=== PATIENT | female | born 1985 | race Caucasian/White ===

== ENCOUNTER 2016-07-23 06:12 | Inpatient (IN) | payer OTHER ==
--- NOTE | 2016-07-20 00:19 | HPE ---
DATE OF SCHEDULED ADMISSION: 07/27/2016 This lady is having an elective repeat section on 07/27/2016 at 0730 hours. She is a 30-year-old, 2, para 1, last menstrual period (LMP) 11/05/2015 estimated date of confinement (EDC) 08/02/2016. She will be 39 weeks of gestation for elective repeat section. She had a primary section in January 2015 for nonreassuring heart, delivered a live male weighing 7 pounds 4 ounces. Her past medical history is that she has had a history of gestational hypertension as well as gestational hypertension in this as well. She is also Rh negative. LABS: Show she is A negative. Received RhoGAM at 28 weeks. HIV negative. Hepatitis negative. RPR negative. Rubella immune. Varicella immune. Pap normal. Urine is negative. Gonorrhea and chlamydia are negative. 1-hour glucose was 134. GBS status at the present time is unknown. She is booked for an elective repeat section. The rest of the examination indicates that she is normocephalic, atraumatic. Neck full range of motions. Pupils equal and reactive to light. Distal pulses are symmetric. No evidence of deep venous thrombosis (DVT), pulmonary embolism (PE), or superficial phlebitis. Lungs are clear bilaterally to bases. No wheezes or rhonchi. Uterus is nontender. Incisional site is nontender. Four quadrant bowel sounds are noted, and she does have polyhydramnios with an amniotic fluid index (DAYANA) of 28 and symphysis fundus height of 41. She has no rash or lesions. No pruritus. No arthralgia or myalgia. No complaints of cough, wheezes, shortness of breath, or dyspnea on exertion. No chest pain. She is not bleeding. She is neurologically complete. No incontinence, urgency. No nausea, vomiting, diarrhea, or constipation. She has no diabetic issues. 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 No past medical history issues. She has had a section as past surgical intervention. She does not smoke or drink, abuse drugs, and there is no domestic violence. We discussed the risks and benefits of section, including hemorrhage, infection, perforation, , reoperation, remote possibility of blood transfusion, remote possibility of hysterectomy, remote possibility of laceration or intensive care admission. After discussing the risks and benefits of the surgery, patient expressed understanding of the procedure, signed and witnessed the consent form. As far as control postoperatively, she is going to use the mini-pill until her has his vasectomy, and there has been a confirmation semen analysis that is successful. IN SUMMARY: We have a term gestation for repeat section with polyhydramnios.
[~2016-07-23] VITALS: Ht 160 cm; Wt 82.0 kg
[2016-07-23] VITALS (8 sets, daily range): BP systolic 109–130; BP diastolic 63–82
[~2016-07-23 06:12] MED LIST: ANTACHW5 PO; COLA100C PO; DOCU10CA PO; IBUP80TA PO; PERCOCET PO; PRENTAB55 PO; PRENTAB8 PO
[2016-07-23] MEDS ORDERED: BUPIVACAINE HCL 0.25% 10 ML VIAL XX ONE (06:30)
[2016-07-23] MEDS ORDERED: LR 800 ML IV ONE (06:30)
[2016-07-23] MEDS ORDERED: BICITRA 30ML SOLN UDC PO ONE (06:30)
[2016-07-23] MEDS ORDERED: ACETAMINOPHEN 650 MG SUPP PR ONE (06:45)
[2016-07-23] MEDS ORDERED: LR 1,000 ML IV SCH ×2 (07:00→10:00)
[2016-07-23 07:11] LABS: MEAN CORPUSCULAR HEMOGLOBIN 29.6 pg (27.0-33.0); MEAN CORPUSCULAR HGB CONC 35.3 g/dl (32.0-36.5); MEAN CORPUSCULAR VOLUME 83.9 fl (80.0-96.0); RED CELL DISTRIBUTION WIDTH 13.6 % (11.5-14.5); WHITE BLOOD COUNT 7.8 K/mm3 (4.0-10.0)
[2016-07-23] MEDS ORDERED: METOCLOPRAMIDE INJ 10MG/2ML VIAL (J2765) IV PRN ×2 (08:11→10:00)
[2016-07-23] MEDS ORDERED: ONDANSETRON 4MG/2ML VIAL (J2405) IV PRN ×2 (08:11→10:00)
[2016-07-23] MEDS ORDERED: NALBUPHINE HCL 10 MG/ML AMP (J2300) IV PRN (08:11)
[2016-07-23] MEDS ORDERED: NALOXONE INJ 0.4 MG/1 ML VIAL (J2310) IV PRN ×2 (08:11)
[2016-07-23] MEDS ORDERED: ePHEDrine SULFATE 25 MG/5 ML(5MG/ML) SYRINGE As Ordered ONE (08:19)
[2016-07-23] MEDS ORDERED: MORPHINE PRES-FREE INJ 10 MG/10 ML VIAL (J2274) As Ordered ONE (08:19)
[2016-07-23] MEDS ORDERED: OXYTOCIN INJ 10 UNITS/ML VIAL (J2590) As Ordered ONE ×2 (08:19→08:50)
[2016-07-23] MEDS ORDERED: ONDANSETRON 4MG/2ML VIAL (J2405) As Ordered ONE (08:24)
[2016-07-23] MEDS ORDERED: KETOROLAC 60 MG/2 ML VIAL (J1885) As Ordered ONE (08:24)
[2016-07-23] MEDS ORDERED: DESFLURANE 240 ML INHALANT As Ordered ONE (08:43)
[2016-07-23 09:07] LABS: CORD GAS ABE V -11.2; CORD GAS HCO3 V 17.9 MEQ/L; CORD GAS O2 SAT V 56.1 %; CORD GAS PCO2 V 52.8 mmHg; CORD GAS PH V 7.147 UNITS; CORD GAS PO2 V 29.7 mmHg; CORD GAS SBC V 14.9 MEQ/L; CORD GAS TCO2 V 19.5 MEQ/L
[2016-07-23 09:08] LABS: CORD GAS ABE A -14.8; CORD GAS HCO3 A 17.7 MEQ/L; CORD GAS O2 SAT A 33.6 %; CORD GAS PCO2 A 75.1 mmHg; CORD GAS PH A 6.991 UNITS; CORD GAS PO2 A 24.4 mmHg; CORD GAS SBC A 12.2 MEQ/L
[2016-07-23] MEDS ORDERED: OXYTOCIN DRIP 30 UNITS in APPROPRIATE DILUENT 1 EA IV SCH (09:31)
[2016-07-23] MEDS ORDERED: MOM 30ML SUSPENSION UDC PO PRN (09:45)
[2016-07-23] MEDS ORDERED: PERCOCET 5MG/325MG TAB PO PRN ×2 (09:45→10:00)
[2016-07-23] MEDS ORDERED: DOCUSATE SODIUM 100 MG CAP PO PRN (09:45)
[2016-07-23] MEDS ORDERED: OXYTOCIN INJ 10 UNITS/ML VIAL (J2590) IV ONE (09:45)
[2016-07-23] MEDS ORDERED: METHYLERGONOVINE MALEATE 0.2 MG TAB PO PRN (09:45)
[2016-07-23] MEDS ORDERED: MEASLES,MUMPS,RUBELLA VACCINE INJ (MMR-II) (90707) SC SCH (09:45)
[2016-07-23] MEDS ORDERED: RHOGAM 300 MCG (1500 IU) INJ (J2790) IM SCH (09:45)
[2016-07-23] MEDS ORDERED: fentaNYL 100 MCG/2 ML INJECTION (J3010) IV PRN (10:00)
[2016-07-23] MEDS ORDERED: KETOROLAC 30 MG/ML VIAL (J1885) IV PRN (10:00)
[2016-07-23] MEDS: PRENATAL VITAMIN TAB PO SCH (10:58)
[2016-07-23] MEDS: PERCOCET 5MG/325MG TAB PO PRN ×2 (15:49→21:51)
[2016-07-24 01:50] VITALS: BP 118/59
[2016-07-24] MEDS: PERCOCET 5MG/325MG TAB PO PRN ×2 (03:04→08:16)
[2016-07-24 05:31] VITALS: BP 136/70
[2016-07-24 06:53] LABS: MEAN CORPUSCULAR HEMOGLOBIN 28.9 pg (27.0-33.0); MEAN CORPUSCULAR HGB CONC 33.8 g/dl (32.0-36.5); MEAN CORPUSCULAR VOLUME 85.7 fl (80.0-96.0); RED CELL DISTRIBUTION WIDTH 13.6 % (11.5-14.5); WHITE BLOOD COUNT 6.6 K/mm3 (4.0-10.0)
[2016-07-24] MEDS: PRENATAL VITAMIN TAB PO SCH (07:43)
[2016-07-24] MEDS ORDERED: OXYC1TAB23 PO (08:08)
--- NOTE | 2016-07-25 18:32 | DSES ---
DATE OF ADMISSION: DATE OF DISCHARGE: 07/24/2016 SUMMARY: This lady is a 30-year-old 2 now para 2, admitted for elective repeat section, history of gestational hypertension. She delivered a live male weighing 9 pounds 0 ounces, 4094 grams, scores of 7 and 9 at one and five minutes respectively. The arterial pH was 6.99, base excess -14.8. Venous pH was 7.14, base excess was -11.2. Upon delivery, it was noted there was failure to maintain the O2 saturation despite a mask and oxygen. The carbon dioxide (CO2) on the baby was 60% and a diagnosis of transposition of the great vessels was made at that time, and the baby was transferred out to [place] and evaluation and stabilization until it is going to have cardiac surgery in [place] on Tuesday. Admitting hemoglobin was 12.2, hematocrit 35.8 and platelets of 185. The patient's blood pressure today is 136/70, respirations are 16, pulse of 69, and temperature 97.0. The rest of the examination is unremarkable. She is normocephalic, atraumatic. Neck full range of motion. Pupils equal and reactive to light. Distal pulses symmetric. No evidence of deep venous thrombosis (DVT), pulmonary embolism (PE) or superficial phlebitis. The chest is clear bilaterally to bases. No wheezes or rhonchi. No costovertebral angle tenderness. Abdomen is soft. Bowel sounds are present. Uterus is two below. Incision is clean and dry. There is no rashes, lesions or pruritus. No arthralgia or myalgia. No complaints of cough, wheeze, shortness of breath or dyspnea on exertion. No arthralgia or myalgia. She has no chest pain. She is not bleeding. She is neurologically complete. No history of incontinence, urgency or frequency. No nausea, vomiting, diarrhea or constipation. Her past history is strictly the fact that she had a section. Family history is noncontributory. She does not smoke or drink or abuse drugs. She is to a soldier. There is no domestic violence. We discussed the risks and benefits of leaving early for Patricia to be with her baby prior to discharge to [place] for surgery. She is to maintain well hydration, mobilizing her legs every few hours, getting out of the car and walking around. A pillow between her abdomen and the seatbelt. Maintain adequate analgesics. Have someone else drive the vehicle monitor. Monitor her lochia. If there is increased lochia or foul discharge, to immediately contact the nearest emergency department. She is to come for two-week incision check and a six-week postoperative check. In summary, we have a gestational hypertension for repeat section with a live- male .
--- NOTE | 2016-08-02 08:19 | RO ---
DATE OF PROCEDURE: 07/23/2016 PREOPERATIVE DIAGNOSIS: Repeat section, declined trial of labor after section (TOLAC). POSTOPERATIVE DIAGNOSES: Repeat section, polyhydramnios, gestational hypertension, repeat section. OPERATION PROPOSED: Repeat section. OPERATION PERFORMED: Repeat section. SURGEON: Dr. Merritt Blanton INDUSTRIAL ROOFER HELPER: ANESTHESIA: Spinal plus local anesthetic for intraperitoneal procedures. ESTIMATED BLOOD LOSS: 400 mL. Under adequate anesthesia and adequate time-out, prepped and draped in the supine position, Bosch catheter in the bladder draining clear urine. Sequentials on board. Antibiotics given preoperatively. A Pfannenstiel incision made through the previous one, passing through abdominal layers, securing hemostasis, opening the peritoneal cavity, bladder reflected well anteriorly. Low transverse incision was made into the uterus. Artificial rupture of membranes (AROM) done was performed and approximately 1200 mL of amniotic fluid removed. We delivered a live male weighing 9 pounds 15 ounces, 4094 grams. of 7 and 8 at one and five minutes respectively. Placenta was manually removed. Three-vessel cord, membranes and tissues intact. Arterial and venous pH were performed. After the removal of placenta sweeping the intrauterine cavity, no evidence of remnants were noted. The uterus contracted well under Pitocin. The lower segment oversewn in usual fashion in two layers and reperitonealization was performed. With instrument and pad count correct, ovaries appeared to be normal. The abdomen was then closed with running sutures for the peritoneum, same for the fascia. We vigorously irrigated the subcutaneous tissue. Subcuticular stitches were placed and Marcaine 0.25% 10 mL at the incision site with Telfa and spray and the patient was sent to recovery in good condition.
== END 2016-07-24 08:46 | disposition home or self-care (01) | DRG 765 ==
LOC: M LDPACU 06:12 → M OBS 10:42
PROVIDERS: ADMIT Obstetrics & Gynecology; ATTEND Obstetrics & Gynecology
PROC: 10D00Z1 Extraction of Products of Conception, Low, Open Approach (ICD-10-PCS; principal; 2016-07-23 07:30)
DX: O34.211 Maternal care for low transverse scar from previous cesarean delivery (principal); O40.3XX0 Polyhydramnios, third trimester, not applicable or unspecified; Z3A.39 39 weeks gestation of pregnancy; O13.4 Gestational [pregnancy-induced] hypertension without significant proteinuria, complicating childbirth; Z37.0 Single live birth